=== PATIENT | female | born 1930 | race Caucasian/White ===

== ENCOUNTER 2016-05-29 09:45 | Inpatient (IN) | payer MEDICARE, OTHER ==
[2016-05-29] MEDS ORDERED: NORMAL SALINE 1000 ML 1,000 ML IV ONE ×2 (10:31→12:26)
[2016-05-29] MEDS ORDERED: MORPHINE SULFATE 10 MG/ML INJ IV ONE (10:31)
[2016-05-29] MEDS ORDERED: CEFTAZIDIME INJ 1 GM VIAL IV ONE (10:32)
[2016-05-29 10:57] LABS: VENOUS BLOOD BASE EXCESS 13.8 mmol/L; VENOUS BLOOD HCO3 39.7 mmol/L (20-32); VENOUS BLOOD PCO2 54.9 mmHg (35-63); VENOUS BLOOD PH 7.48 (7.30-7.42)
[2016-05-29 10:59] LABS: ABSOLUTE EOSINOPHILS # (AUTO) 0.1 10^3/uL (0.0-0.6); ABSOLUTE MONOCYTES (AUTO) 1.3 10^3/uL (0.1-1.4); ABSOLUTE NEUT (AUTO) 6.5 10^3/uL (1.7-8.2); BASOPHILS % (AUTO) 0.3 % (0-2); EOSINOPHILS % (AUTO) 0.6 % (0-6); HEMOGLOBIN 13.4 g/dL (12.0-15.5); HGB HCT DIFFERENCE 0.2; LYMPHOCYTES % (AUTO) 19.9 % (13-45); MEAN CORPUSCULAR HEMOGLOBIN 26.9 pg (27.0-33.4); MEAN CORPUSCULAR HGB CONC 33.4 g/dL (32.0-36.0); MEAN CORPUSCULAR VOLUME 81 fl (80-97); MONOCYTES % (AUTO) 12.9 % (3-13); RED BLOOD COUNT 4.97 10^6/uL (3.72-5.28); RED CELL DISTRIBUTION WIDTH 16.3 % (11.5-14.0); SEGMENTED NEUTROPHILS % (AUTO) 66.3 % (42-78); WHITE BLOOD COUNT 9.8 10^3/uL (4.0-10.5)
[2016-05-29 11:04] LABS: PROTHROMBIN TIME 15.1 SEC (11.4-15.4)
[2016-05-29 11:23] LABS: ALANINE AMINOTRANSFERASE 24 U/L (9-52); ALBUMIN 3.5 g/dL (3.5-5.0); ALKALINE PHOSPHATASE 83 U/L (38-126); ANION GAP 13 (5-19); ASPARTATE AMINO TRANSFERASE 32 U/L (14-36); BILIRUBIN,TOTAL 0.5 mg/dL (0.2-1.3); CALCIUM 9.7 mg/dL (8.4-10.2); CARBON DIOXIDE 39 mmol/L (22-30); CHLORIDE 81 mmol/L (98-107); CREATININE RESULT 2.44 mg/dL (0.52-1.25); GLUCOSE 323 mg/dL (75-110); POTASSIUM 4.2 mmol/L (3.6-5.0); SODIUM 133.3 mmol/L (137-145); TOTAL PROTEIN 7.8 g/dL (6.3-8.2)
[2016-05-29 11:32] LABS: BLOOD UREA NITROGEN 144 mg/dL (7-20)
--- NOTE | 2016-05-29 11:34 | ER Document Report ---
ED GI/ - General Chief Complaint: Vaginal Bleeding Stated Complaint: VAGINAL BLEEDING Notes: This is an 86-year-old female who presents from [facility] home. She has history of stroke with hemiplegia, nonverbal, G-tube, DO NOT RESUSCITATE. She was noted to have blood-tinged, foul-smelling urine a few days ago. Urine culture was sent to the hospital and she was started on antibiotics. She was referred here today for gross hematuria. Further history unavailable secondary to patient's nonverbal state. Family at bedside states this is her baseline although she is moaning somewhat more than normal. TRAVEL OUTSIDE OF THE [place] IN LAST 30 DAYS: No - Related Data Allergies/Adverse Reactions: codeine [Codeine] Allergy (Verified 06/16/13 17:00) Home Medications: Current Home Medications Acetaminophen [Children's Acetaminophen] 650 mg GT Q4HP PRN 05/29/16 [History] Aspirin [Aspirin 81 mg Chewable Tablet] 81 mg GT DAILY 05/29/16 [History] Glycopyrrolate [Robinul Forte 1 Mg Tablet] 1 mg SL TID 05/29/16 [History] Insulin Aspart [Novolog Insulin (Aspart) 100 unit/mL] 0 units SQ ASDIR PRN 05/29 [History] Insulin Glargine,Hum.rec.anlog [Lantus Insulin Inj 300 Unit/3 ml Pen] 24 unit SUBCUT DAILY@0000 05/29/16 [History] Insulin Glargine,Hum.rec.anlog [Lantus Solostar] 28 unit SQ DAILY@1200 05/29/16 [History] Ketoconazole [Nizoral A-D] 1 applic TP TUFR@1000 05/29/16 [History] Metoprolol Tartrate 12.5 mg GT Q12 05/29/16 [History] Sodium Chloride [[place] Nasal [place] 44 ml Bottle] 1 spray IH QIDWA 05/29/16 [ History] Past Medical History - General Information source: Relative, Outside Facility Records Cannot obtain history due to: Dementia - Social History Smoking Status: Unknown if Ever Smoked Frequency of alcohol use: None Drug Abuse: None Lives with: Intermediate Family History: Reviewed & Not Pertinent - Past Medical History Cardiac Medical History: Reports: Hx Hypercholesterolemia, Hx Hypertension Pulmonary Medical History: Reports: Hx Bronchitis, Hx Pneumonia Denies: Hx COPD, Hx Tuberculosis Neurological Medical History: Reports: Hx Cerebrovascular Accident - NUMEROUS TIA's. Denies: Hx Seizures Endocrine Medical History: Reports: Hx Diabetes Mellitus Type 2 Musculoskeltal Medical History: Reports Hx Arthritis Psychiatric Medical History: Reports: Hx Dementia Past Surgical History: Reports: Hx Mastectomy - L sided. Denies: Hx Appendectomy, Hx Bowel Surgery, Hx Section, Hx Cholecystectomy, Hx Coronary Artery Bypass Graft, Hx Gastric Bypass Surgery, Hx Herniorrhaphy, Hx Hysterectomy, Hx Pacemaker, Hx Tonsillectomy, Hx Tubal Ligation - Immunizations Hx Diphtheria, Pertussis, Tetanus Vaccination: Yes Hx Pneumococcal Vaccination: 06/16/13 Review of Systems - Review of Systems -: Yes ROS unobtainable due to patient's medical condition Physical Exam - Vital signs Vitals: Pulse Resp BP Pulse Ox 91 34 H 137/60 H 97 05/29/16 10:00 05/29/16 10:00 05/29/16 10:00 05/29/16 10:00 - General In distress: Mild - Patient with eyes closed, mild tachypnea, moaning slightly, appears uncomfortable and in mild distress - HEENT Head: Normocephalic Pupils: PERRL Nasal: Normal Mouth/Lips: Normal Mucous membranes: Dry Neck: Normal - Respiratory Respiratory status: Tachypnea Breath sounds: Normal - Cardiovascular Rhythm: Regular - Abdominal Inspection: Normal Distension: No distension Tenderness: Nontender - Genitourinary External exam: Other - Mckeon has been placed by nursing staff with gross hematuria as well as blood around the vaginal area - Extremities General upper extremity: Normal inspection General lower extremity: Normal inspection - Skin Skin Temperature: Warm Skin Moisture: Dry Skin Color: Normal Course - Re-evaluation Re-evalutation: 05/29/16 14:01 discussed comfort care with family who is considering, will talk with other family members. - Vital Signs Vital signs: Temp Pulse Resp BP Pulse Ox 91 22 H 120/60 99 05/29/16 10:00 05/29/16 19:01 05/29/16 19:01 05/29/16 19:01 - Laboratory Result Diagrams: 05/29/16 10:39 05/29/16 10:39 Laboratory results interpreted by me: 05/29/16 05/29/16 05/29/16 10:39 10:39 10:39 MCH 26.9 L RDW 16.3 H VBG pH 7.48 H VBG HCO3 39.7 H Sodium 133.3 L Chloride 81 L Carbon Dioxide 39 H BUN 144 H Creatinine 2.44 H Est GFR ( Amer) 23 L Est GFR (Non-Af Amer) 19 L Glucose 323 H Creatine Kinase Urine Protein Urine Glucose (UA) Urine Blood Ur Leukocyte Esterase 05/29/16 05/29/16 10:39 11:09 MCH RDW VBG pH VBG HCO3 Sodium Chloride Carbon Dioxide BUN Creatinine Est GFR ( Amer) Est GFR (Non-Af Amer) Glucose Creatine Kinase < 20 L Urine Protein >=500 H Urine Glucose (UA) 50 H Urine Blood SMALL H Ur Leukocyte Esterase LARGE H - Diagnostic Test Radiology reviewed: Image reviewed, Reports reviewed - fecal impaction - EKG Interpretation by Me EKG shows normal: Sinus rhythm - new TWI in I and AVL Discharge - Discharge Clinical Impression: Urinary tract infection due to Proteus, Hemorrhage of urinary bladder wall, Acute kidney injury, Fecal impaction Condition: Fair Disposition: ADMITTED INPATIENT Admitting Provider: Hospitalist critical access hospital Unit Admitted: Medical Floor
[2016-05-29 11:43] LABS: APPEARANCE,URINE TURBID
[2016-05-29 11:44] LABS: PROTEIN,URINE >=500 mg/dL (NEGATIVE); UROBILINOGEN,URINE NEGATIVE mg/dL (<2.0)
[2016-05-29 11:45] LABS: LEUKOCYTE ESTERASE,URINE LARGE (NEGATIVE); NITRITE,URINE NEGATIVE (NEGATIVE); URINE SPECIFIC GRAVITY 1.025
[2016-05-29 11:46] LABS: BILIRUBIN,URINE NEGATIVE (NEGATIVE); GLUCOSE, URINE 50 mg/dL (NEGATIVE); KETONES,URINE NEGATIVE (NEGATIVE)
[2016-05-29 11:47] LABS: BACTERIA,URINE TRACE /HPF; RBC,URINE TOO NUMEROUS TO CNT /HPF; WBC,URINE 30-50 /HPF
--- NOTE | 2016-05-29 13:17 | EKG REPORT ---
SEVERITY:- ABNORMAL ECG - SINUS RHYTHM INFERIOR INFARCT, AGE INDETERMINATE NONSPECIFIC T ABNORMALITIES, ANT-LAT LEADS PROLONGED QT INTERVAL : Confirmed by: Maugi Ayers 29-May-2016 13:16:34
[2016-05-29 13:21] LABS: CREATINE KINASE MB 1.59 ng/mL (<4.55); TROPONIN I 0.052 ng/mL
[2016-05-29] MEDS ORDERED: NA PHOS,M-B/NA PHOS,DI-BA (ADULT) 133 ML ENEMA PR SCH (14:00)
[2016-05-29] MEDS ORDERED: ACETAMINOPHEN 650 MG SUPP.RECT PR PRN (14:48)
[2016-05-29] MEDS ORDERED: ACETAMINOPHEN 325 MG TABLET PEG PRN (14:48)
[2016-05-29] MEDS ORDERED: LEVALBUTEROL HCL NEB 1.25 MG/3 ML AMPUL NEB PRN (14:48)
[2016-05-29] MEDS ORDERED: ONDANSETRON HCL INJ/PF 4 MG/2 ML SDV IV PRN (14:48)
[2016-05-29] MEDS ORDERED: GLUCAGON,HUMAN RECOMB 1 MG INJ IM PRN (14:58)
[2016-05-29] MEDS ORDERED: DEXTROSE 40% GEL 15 GM TUBE PO PRN ×2 (14:58)
[2016-05-29] MEDS ORDERED: DEXTROSE 50%-WATER 25 GM/50 ML DISP.SYRIN IV PRN ×2 (14:58)
[2016-05-29] MEDS ORDERED: INSULIN LISPRO 100 UNIT/ML 3 ML VIAL SUBCUT ONE (17:00)
--- NOTE | 2016-05-29 17:44 | PDOC H&P ---
History of Present Illness Admission Date/PCP: 05/29/16 14:48 JUAN CARLOS ARAUZ History of Present Illness: CATHI JULIO is a 86 year old female diabetes mellitus type II, CVA, advanced dementia, hyperlipidemia, PEG tube dependent who presents to the emergency department from primary residential for "vaginal bleeding". Unable to obtain any review of systems from patient as she has aphasia at baseline secondary to prior stroke. 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, osteoarthritis , breast cancer Cardiac Medical History: Reports: Hyperlipidema, Hypertension Pulmonary Medical History: Reports: Bronchitis, Pneumonia Denies: Chronic Obstructive Pulmonary Disease (COPD), Tuberculosis Neurological Medical History: Denies: Seizures Endocrine Medical History: Reports: Diabetes Mellitus Type 2 Musculoskeltal Medical History: Reports: Arthritis Psychiatric Medical History: Reports: Dementia Past Surgical History Past Surgical History: Reports: Cholecystectomy, Mastectomy - L sided Denies: Appendectomy, Section, Coronary Artery Bypass Graft, Gastric Bypass Surgery, Herniorrhaphy, Hysterectomy, Pacemaker, Tonsillectomy, Tubal Ligation Social History Information Source: POA - Power of Manager Risk Lives with: Senior Living Smoking Status: Former Smoker - Previous social smoker on occasion Frequency of Alcohol Use: None Hx Recreational Drug Use: No Hx Prescription Drug Abuse: No - Advance Directive Resuscitation Status: Do Not Resuscitate Surrogate healthcare decision maker:: Dian James, daughter Family History Family History: Hyperlipidemia, Malignancy Parental Family History Reviewed: Yes Children Family History Reviewed: Yes Sibling(s) Family History Reviewed.: Yes Medication/Allergy Home Medications: Acetaminophen [Children's Acetaminophen] 650 mg GT Q4HP PRN 05/29/16 Aspirin [Aspirin 81 mg Chewable Tablet] 81 mg GT DAILY 05/29/16 Glycopyrrolate [Robinul Forte 1 Mg Tablet] 1 mg SL TID 05/29/16 Insulin Aspart [Novolog Insulin (Aspart) 100 unit/mL] 0 units SQ ASDIR PRN 05/29 Insulin Glargine,Hum.rec.anlog [Lantus Insulin Inj 300 Unit/3 ml Pen] 24 unit SUBCUT DAILY@0000 05/29/16 Insulin Glargine,Hum.rec.anlog [Lantus Solostar] 28 unit SQ DAILY@1200 05/29/16 Ketoconazole [Nizoral A-D] 1 applic TP TUFR@1000 05/29/16 Metoprolol Tartrate 12.5 mg GT Q12 05/29/16 Sodium Chloride [[place] Nasal [place] 44 ml Bottle] 1 spray IH QIDWA 05/29/16 Allergies/Adverse Reactions: codeine [Codeine] Allergy (Verified 06/16/13 17:00) Review of Systems ROS unobtainable: Due to mental status Physical Exam Vital Signs: Temp Pulse Resp BP Pulse Ox 91 22 H 134/57 H 100 05/29/16 10:00 05/29/16 14:01 05/29/16 14:01 05/29/16 14:01 Intake & Output 05/28/16 05/29/16 05/30/16 06:59 06:59 06:59 Weight 69 kg General appearance: PRESENT: mild distress, well-developed, well-nourished Head exam: PRESENT: atraumatic, normocephalic Eye exam: PRESENT: conjunctiva pink, PERRLA. ABSENT: EOMI - Gaze deviated right upper quadrant, scleral icterus Ear exam: PRESENT: normal external ear exam Mouth exam: PRESENT: other - Refuses to open mouth Teeth exam: PRESENT: edentulous Neck exam: ABSENT: carotid bruit, JVD, lymphadenopathy, thyromegaly, tracheal deviation Respiratory exam: PRESENT: clear to auscultation monica, symmetrical - Poor respiratory effort. ABSENT: rales, rhonchi, wheezes Cardiovascular exam: PRESENT: RRR, +S1, +S2, systolic murmur - 2/6 apex. ABSENT : clicks, diastolic murmur, gallop, rubs Pulses: PRESENT: normal dorsalis pedis pul Vascular exam: PRESENT: normal capillary refill GI/Abdominal exam: PRESENT: normal bowel sounds, soft. ABSENT: distended, guarding, mass, organolmegaly, rebound, tenderness Rectal exam: PRESENT: deferred Gentrourinary exam: PRESENT: other - Mckeon catheter with braden blood Extremities exam: PRESENT: full ROM. ABSENT: clubbing, pedal edema Neurological exam: PRESENT: awake, motor sensory deficit - Dysphasia, aphasic - Baseline Psychiatric exam: PRESENT: flat affect, other - Unable to ascertain Skin exam: PRESENT: dry, intact, warm. ABSENT: cyanosis, rash Results Laboratory Results: Due to current error in [employer] interface please see printed chart for all laboratory values. 05/29/16 05/29/16 05/29/16 10:39 10:39 10:39 Sodium 133.3 L Potassium 4.2 Chloride 81 L Carbon Dioxide 39 H Anion Gap 13 BUN 144 H Creatinine 2.44 H Glucose 323 H Lactic Acid 2.1 Calcium 9.7 AST 32 ALT 24 Alkaline Phosphatase 83 Creatine Kinase < 20 L Troponin I 05/29/16 10:39 Sodium Potassium Chloride Carbon Dioxide Anion Gap BUN Creatinine Glucose Lactic Acid Calcium AST ALT Alkaline Phosphatase Creatine Kinase Troponin I 0.052 Impressions: Chest X-Ray 05/29/16 10:32 IMPRESSION: Bandlike scarring or atelectasis in the right lower lobe. Abdomen/Pelvis CT 05/29/16 12:14 IMPRESSION: Hyperdense urine in the bladder with Mckeon catheter draining the bladder. Findings likely represent bladder mucosal hemorrhage. Massive amount of stool in the distal sigmoid and rectum Staghorn calculus in the right kidney Status: Imported from PACS Assessment & Plan - Diagnosis (1) Acute kidney injury Is this a current diagnosis for this admission?: YesPlan: We'll begin patient on normal saline at 200 mL an hour. Secondary to dehydration due to PEG status. Daughter reports to me that mother had a recent increase in her free water per her residential physician. Will also give patient free water flushes at 75 mL/h. (2) Urinary tract infection due to Proteus Is this a current diagnosis for this admission?: YesPlan: Patient has recent urinary culture that is positive for Proteus. This is sensitive to Rocephin. Will begin patient on Rocephin 1 g IV daily. Anticipate that this infection has been going on for quite some time as patient has a staghorn calculus. Calculus is nonobstructing, but fecal impaction is causing hydroureter. Discussed case with radiology and ER physician. (3) Hemorrhage of urinary bladder wall Is this a current diagnosis for this admission?: YesPlan: Will follow H&H. Consult urology if needed. Anticipate this may be secondary to underlying infection. (4) Fecal impaction Is this a current diagnosis for this admission?: YesPlan: Will have manual disimpaction followed by enemas twice a day and lactulose per PEG. Anticipate the patient will have some loose stool prior to full evacuation of colon. Would like to see patient have 5-6 hard/soft bowel movements before discontinuing therapy. Concern for [place] syndrome. 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 Also has PEG secondary to previous CVA (7) Personal history of breast cancer Is this a current diagnosis for this admission?: YesPlan: Left arm restricted - Time Time Spent: 50 to 70 Minutes Medications reviewed and adjusted accordingly: Yes - Inpatient Certification Based on my medical assessment, after consideration of the patient's comorbidities, presenting symptoms, or acuity I expect that the services needed warrant INPATIENT care.: Yes I certify that my determination is in accordance with my understanding of Medicare's requirements for reasonable and necessary INPATIENT services [42 CFR 412.3e].: Yes Medical Necessity: Failure to Improve With Outpatient Therapy, Need For IV Fluids, Need For Continuous Telemetry Monitoring, Need for IV Antibiotics, Risk of Complication if Not Cared For in Hospital Post Hospital Care: D/C [employer] Documentation
[2016-05-29] MEDS: NORMAL SALINE 1000 ML 1,000 ML IV PRN (18:30)
[2016-05-29] MEDS: LACTULOSE SYRUP 20 GM/30 ML UDCUP PEG SCH (18:40)
[2016-05-29] MEDS: MORPHINE SULFATE 10 MG/ML INJ IV PRN (18:50)
[2016-05-29] MEDS: MINERAL OIL ENEMA 133 ML PR SCH (18:55)
[2016-05-29] MEDS: SODIUM CHLORIDE NASAL SPRAY 44 ML NAREB SCH (21:39)
[2016-05-29] MEDS: METOPROLOL TARTRATE 25 MG TABLET GT SCH (23:21)
[2016-05-30] MEDS: SODIUM CHLORIDE NASAL SPRAY 44 ML NAREB SCH ×5 (00:08→22:55)
[2016-05-30] MEDS: INSULIN LISPRO 100 UNIT/ML 3 ML VIAL SUBCUT PRN ×2 (00:09→07:10)
[2016-05-30] MEDS: LACTULOSE SYRUP 20 GM/30 ML UDCUP PEG SCH ×2 (00:10→05:29)
[2016-05-30] MEDS: NORMAL SALINE 1000 ML 1,000 ML IV PRN ×2 (03:42→08:19)
[2016-05-30 04:33] LABS: ABSOLUTE EOSINOPHILS # (AUTO) 0.2 10^3/uL (0.0-0.6); ABSOLUTE LYMPHOCYTES (AUTO) 1.7 10^3/uL (0.5-4.7); ABSOLUTE MONOCYTES (AUTO) 0.9 10^3/uL (0.1-1.4); ABSOLUTE NEUT (AUTO) 6.3 10^3/uL (1.7-8.2); BASOPHILS % (AUTO) 0.2 % (0-2); EOSINOPHILS % (AUTO) 1.8 % (0-6); HEMATOCRIT 25.5 % (36.0-47.0); HGB HCT DIFFERENCE -0.3; LYMPHOCYTES % (AUTO) 18.4 % (13-45); MEAN CORPUSCULAR HGB CONC 33.1 g/dL (32.0-36.0); MEAN CORPUSCULAR VOLUME 82 fl (80-97); MONOCYTES % (AUTO) 10.2 % (3-13); RED BLOOD COUNT 3.13 10^6/uL (3.72-5.28); RED CELL DISTRIBUTION WIDTH 15.9 % (11.5-14.0); SEGMENTED NEUTROPHILS % (AUTO) 69.4 % (42-78); WHITE BLOOD COUNT 9.1 10^3/uL (4.0-10.5)
[2016-05-30 04:35] LABS: CHLORIDE 110 mmol/L (98-107); CREATININE RESULT 1.17 mg/dL (0.52-1.25); GLUCOSE 159 mg/dL (75-110); MAGNESIUM 2.1 mg/dL (1.6-2.3)
[2016-05-30 04:44] LABS: ANION GAP 9 (5-19)
[2016-05-30 04:51] LABS: HEMOGLOBIN 8.4 g/dL (12.0-15.5)
[2016-05-30 04:52] LABS: BLOOD UREA NITROGEN 102 mg/dL (7-20); CARBON DIOXIDE 22 mmol/L (22-30); POTASSIUM 3.1 mmol/L (3.6-5.0)
[2016-05-30 04:53] LABS: CALCIUM 5.7 mg/dL (8.4-10.2)
[2016-05-30] MEDS ORDERED: CALCIUM GLUCONATE 1000 MG/10 ML INJ IV ONE (07:34)
[2016-05-30 07:50] VITALS: BP 132/49
[2016-05-30] MEDS ORDERED: INSULIN GLARGINE,HUM.REC.ANLOG 300 UNIT/3 ML INSULN.PEN SUBCUT SCH ×3 (08:00→22:00)
[2016-05-30] MEDS ORDERED: INSULIN GLARGINE,HUM.REC.ANLOG 1,000 UNIT/10 ML UNIT SUBCUT SCH (08:00)
[2016-05-30] MEDS: POTASSI CL 20 MEQ/50 ML RIDER 20 MEQ/50 ML RTUPB IV SCH ×2 (08:19→10:42)
[2016-05-30] MEDS ORDERED: CEFTRIAXONE 1 GM/D5W RTU 50 ML IV SCH (10:00)
[2016-05-30] MEDS ORDERED: CALCIUM GLUCONATE 2,000 MG in DEXTROSE 5%-WATER 100 ML IV ONE (10:00)
[2016-05-30] MEDS: METOPROLOL TARTRATE 25 MG TABLET GT SCH ×3 (10:50→21:45)
[2016-05-30] MEDS: MINERAL OIL ENEMA 133 ML PR SCH ×3 (11:29→21:45)
[2016-05-30] MEDS: MORPHINE SULFATE 10 MG/ML INJ IV PRN (11:31)
[2016-05-30] MEDS ORDERED: NORMAL SALINE 1000 ML 1,000 ML IV PRN (13:08)
[2016-05-30] MEDS ORDERED: LORAZEPAM INJ 2 MG/1 ML VIAL IV PRN (13:08)
--- NOTE | 2016-05-30 13:11 | Progress Note ---
Provider Note Provider Note: Discussion with patient family re:transfer for urologic evalutation for gross hematuria and decline of hgb over 24hours. Family declines aggressive intervention and evaluation. State that PEG not a part of mother's wishes, but was put in before they knew. Comfort measures to be started. Hospice consulted. Temporizing measures until all family can be present.
[2016-05-30 14:02] LABS: ABSOLUTE EOSINOPHILS # (AUTO) 0.4 10^3/uL (0.0-0.6); ABSOLUTE LYMPHOCYTES (AUTO) 2.3 10^3/uL (0.5-4.7); ABSOLUTE MONOCYTES (AUTO) 1.6 10^3/uL (0.1-1.4); ABSOLUTE NEUT (AUTO) 10.6 10^3/uL (1.7-8.2); BASOPHILS % (AUTO) 0.2 % (0-2); EOSINOPHILS % (AUTO) 2.5 % (0-6); HEMATOCRIT 28.2 % (36.0-47.0); HEMOGLOBIN 9.2 g/dL (12.0-15.5); HGB HCT DIFFERENCE -0.6; LYMPHOCYTES % (AUTO) 15.6 % (13-45); MEAN CORPUSCULAR HEMOGLOBIN 26.7 pg (27.0-33.4); MEAN CORPUSCULAR HGB CONC 32.5 g/dL (32.0-36.0); MEAN CORPUSCULAR VOLUME 82 fl (80-97); MONOCYTES % (AUTO) 10.9 % (3-13); RED BLOOD COUNT 3.44 10^6/uL (3.72-5.28); RED CELL DISTRIBUTION WIDTH 16.1 % (11.5-14.0); SEGMENTED NEUTROPHILS % (AUTO) 70.8 % (42-78)
--- NOTE | 2016-05-30 20:54 | PDOC PROGRESS REPORT ---
Subjective Progress Note for:: 05/30/16 Subjective:: Patient is not tolerating tube feeds. Her free water flushes per nursing. Patient continues to be constipated requiring manual disimpaction. Patient's hemoglobin has dropped to 8 from 13 on admission continues to have copious hematuria. Patient is unable to obtain review of systems secondary to her baseline aphasia due to previous CVA. Physical Exam Vital Signs: Temp Pulse Resp BP Pulse Ox 97.5 F 70 18 132/49 H 99 05/30/16 07:28 05/30/16 19:00 05/30/16 10:27 05/30/16 07:28 05/30/16 07:28 Intake & Output 05/29/16 05/30/16 05/31/16 06:59 06:59 06:59 Intake Total 1750 1000 Output Total 1375 1080 Balance 375 -80 Weight 70.2 kg 70.2 kg Exam: General: Resting, tachypnea when stimulated no acute respiratory distress HEENT: AT/NC, PERRL, gaze palsy, oropharynx is moist, pink, no scleral icterus, no conjunctival injection Neck: Slight JVD, trachea midline Chest: Crackles bilaterally CV: Regular rate and rhythm, normal S1 and S2, 2/6 murmur;no rub or gallop Abdomen: Soft, mildly distended, diminished tinkling bowel sounds; no rebound, rigidity Extremities: No cyanosis, clubbing or edema Neuro: A aphasia, hemiparesis, gaze deviation Results Laboratory Results: 05/30/16 13:34 05/30/16 04:10 05/30/16 05/30/16 05/30/16 04:10 04:10 08:55 WBC 9.1 RBC 3.13 L Hgb 8.4 L D Hct 25.5 L MCV 82 MCH 27.0 MCHC 33.1 RDW 15.9 H Plt Count 157 Seg Neutrophils % 69.4 Lymphocytes % 18.4 Monocytes % 10.2 Eosinophils % 1.8 Basophils % 0.2 Absolute Neutrophils 6.3 Absolute Lymphocytes 1.7 Absolute Monocytes 0.9 Absolute Eosinophils 0.2 Absolute Basophils 0.0 Retic Count (auto) Absolute Retic Sodium 141.0 Potassium 3.1 L D Chloride 110 H Carbon Dioxide 22 D Anion Gap 9 BUN 102 H D Creatinine 1.17 Est GFR ( Amer) 53 L Est GFR (Non-Af Amer) 44 L Glucose 159 H Calcium 5.7 L* Magnesium 2.1 Iron Cancelled TIBC Cancelled % Saturation Cancelled Transferrin Ferritin Cancelled Vitamin B12 Cancelled Folate Cancelled Blood Type Antibody Screen 05/30/16 05/30/16 05/30/16 08:55 08:55 09:48 WBC RBC Hgb Hct MCV MCH MCHC RDW Plt Count Seg Neutrophils % Lymphocytes % Monocytes % Eosinophils % Basophils % Absolute Neutrophils Absolute Lymphocytes Absolute Monocytes Absolute Eosinophils Absolute Basophils Retic Count (auto) 2.71 Absolute Retic 0.119 Sodium Potassium Chloride Carbon Dioxide Anion Gap BUN Creatinine Est GFR ( Amer) Est GFR (Non-Af Amer) Glucose Calcium Magnesium Iron TIBC % Saturation Transferrin Cancelled Ferritin Vitamin B12 Folate Blood Type A POSITIVE Antibody Screen NEGATIVE 05/30/16 13:34 WBC 15.0 H RBC 3.44 L Hgb 9.2 L Hct 28.2 L MCV 82 MCH 26.7 L MCHC 32.5 RDW 16.1 H Plt Count 233 Seg Neutrophils % 70.8 Lymphocytes % 15.6 Monocytes % 10.9 Eosinophils % 2.5 Basophils % 0.2 Absolute Neutrophils 10.6 H Absolute Lymphocytes 2.3 Absolute Monocytes 1.6 H Absolute Eosinophils 0.4 Absolute Basophils 0.0 Retic Count (auto) Absolute Retic Sodium Potassium Chloride Carbon Dioxide Anion Gap BUN Creatinine Est GFR ( Amer) Est GFR (Non-Af Amer) Glucose Calcium Magnesium Iron TIBC % Saturation Transferrin Ferritin Vitamin B12 Folate Blood Type Antibody Screen 05/29/16 05/29/16 05/30/16 15:15 21:40 04:10 Troponin I 0.066 0.056 0.027 Impressions: Chest X-Ray 05/29/16 10:32 IMPRESSION: Bandlike scarring or atelectasis in the right lower lobe. Abdomen/Pelvis CT 05/29/16 12:14 IMPRESSION: Hyperdense urine in the bladder with Mckeon catheter draining the bladder. Findings likely represent bladder mucosal hemorrhage. 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 At this time they have elected for patient to be made comfort measures. We will not irrigate patient were wall is concern for ongoing bleeding that would be worsened by irrigation. Will irrigate as necessary to maintain Mckeon patency by hand. (2) Acute kidney injury Is this a current diagnosis for this admission?: YesPlan: At this time, I have concerns for ongoing aggressive hydration for this patient has a feel that she is likely retaining urine in her bladder causing distention. Patient continues to have clots and copious bleeding from her urogenital tract. At this time, her acute renal failure has improved, but patient remains uremic likely secondary to paternal blood products. (3) Urinary tract infection due to Proteus Is this a current diagnosis for this admission?: Yes (4) Fecal impaction Is this a current diagnosis for this admission?: YesPlan: Continue disimpaction and enemas as these are providing patient with relief. 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 - Time Time Spent with patient: 35 or more minutes Medications reviewed and adjusted accordingly: Yes Anticipated discharge: Hospice Within: when bed available
[2016-05-31] MEDS: MORPHINE SULFATE 10 MG/ML INJ IV PRN ×2 (02:24→17:11)
[2016-05-31] MEDS: SODIUM CHLORIDE NASAL SPRAY 44 ML NAREB SCH ×2 (10:22→14:06)
[2016-05-31] MEDS ORDERED: METOPROLOL TARTRATE 25 MG TABLET GT ONE (10:45)
[2016-05-31] MEDS ORDERED: MINERAL OIL ENEMA 133 ML PR ONE (11:00)
--- NOTE | 2016-05-31 17:08 | PDOC DISCHARGE SUMMARY ---
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) Is this a current diagnosis for this admission?: Yes (7) Personal history of breast cancer Is this a current diagnosis for this admission?: Yes (8) Diabetes mellitus, insulin dependent (IDDM), controlled Is this a current diagnosis for this admission?: Yes (9) Hypocalcemia Is this a current diagnosis for this admission?: Yes (10) Hypokalemia Is this a current diagnosis for this admission?: Yes (11) Acute blood loss anemia Is this a current diagnosis for this admission?: Yes (12) Hydroureter, right Is this a current diagnosis for this admission?: Yes (13) Staghorn calculus Is this a current diagnosis for this admission?: Yes - Additional Information Resuscitation Status: Do Not Resuscitate Home Medications: Acetaminophen [Children's Acetaminophen] 650 mg GT Q4HP PRN 05/29/16 Aspirin [Aspirin 81 mg Chewable Tablet] 81 mg GT DAILY 05/29/16 Glycopyrrolate [Robinul Forte 1 Mg Tablet] 1 mg SL TID 05/29/16 Insulin Aspart [Novolog Insulin (Aspart) 100 unit/mL] 0 units SQ ASDIR PRN 05/29 Insulin Glargine,Hum.rec.anlog [Lantus Insulin Inj 300 Unit/3 ml Pen] 24 unit SUBCUT DAILY@0000 05/29/16 Insulin Glargine,Hum.rec.anlog [Lantus Solostar] 28 unit SQ DAILY@1200 05/29/16 Ketoconazole [Nizoral A-D] 1 applic TP TUFR@1000 05/29/16 Metoprolol Tartrate 12.5 mg GT Q12 05/29/16 Sodium Chloride [[place] Nasal Lane 44 ml Bottle] 1 spray IH QIDWA 05/29/16 History of Present Illness History of Present Illness: CATHI JULIO is a 86 year old female diabetes mellitus type II, CVA, advanced dementia, hyperlipidemia, PEG tube dependent who presents to the emergency department from primary [facility] for "vaginal bleeding". Unable to obtain any review of systems from patient as she has aphasia at baseline secondary to prior stroke. Hospital Course Hospital Course: Patient was sent from the [facility] for her "vaginal bleeding" however was found to have gross hematuria. Patient also had positive urine culture at that time for Proteus mirabilis. Patient appeared started on Rocephin as it was sensitive to this. Patient was found to be in acute renal failure secondary to dehydration and was rehydrated with persistent uremia. Patient also had significant fecal impaction found on CT which was found to be causing right hydroureter. Incidental staghorn calculus was seen but not causing obstruction. Patient after rehydration and initiation of antibiotics had an acute drop in her hemoglobin with persistent gross hematuria. At this time, urology is unavailable and discussion was made with family for consideration of possible transfer for aggressive surgical intervention or for comfort measures at this time. Family elected for comfort measures at this time and requested inpatient hospice for their mother. Patient is to be transferred to inpatient hospice today on comfort measures. She is DNR/DNI. Physical Exam Vital Signs: Temp Pulse Resp BP Pulse Ox 97.5 F 86 22 H 132/49 H 99 05/30/16 07:28 05/31/16 10:31 05/31/16 10:31 05/30/16 07:28 05/30/16 07:28 Intake & Output 05/30/16 05/31/16 06/01/16 06:59 06:59 06:59 Intake Total 1750 1425 Output Total 1375 1880 Balance 375 -455 Weight 70.2 kg 70.2 kg Exam: General: Acutely ill-appearing, grimacing, tachypnea when stimulated no acute respiratory distress HEENT: AT/NC, PERRL, oropharynx is dry, pale, no scleral icterus, no conjunctival injection Neck: Slight JVD, trachea midline Chest: Crackles bilaterally CV: Regular rate and rhythm, normal S1 and S2, 2/6 murmur;no rub or gallop Abdomen: Soft, mildly distended, diminished tinkling bowel sounds; no rebound, rigidity Extremities: No cyanosis, clubbing or edema Neuro: aphasia, hemiparesis Results Laboratory Results: 05/30/16 13:34 05/30/16 04:10 05/29/16 05/29/16 05/30/16 15:15 21:40 04:10 Troponin I 0.066 0.056 0.027 Impressions: Chest X-Ray 05/29/16 10:32 IMPRESSION: Bandlike scarring or atelectasis in the right lower lobe. Abdomen/Pelvis CT 05/29/16 12:14 IMPRESSION: Hyperdense urine in the bladder with Mckeon catheter draining the bladder. Findings likely represent bladder mucosal hemorrhage. Massive amount of stool in the distal sigmoid and rectum Staghorn calculus in the right kidney Qualifiers PATEINT BEING DISCHARGED WITH ANY OF THE FOLLOWING DIAGNOSIS?: No Plan Time Spent: Greater than 30 Minutes
== END 2016-05-31 17:41 | disposition hospice, inpatient (51) | DRG 699 ==
LOC: ER 09:45 → UNDOADMIN 14:17 → EH 14:17 → 3W 20:50
PROVIDERS: ADMIT Family Medicine; ATTEND Family Medicine
DX: N32.89 Other specified disorders of bladder (principal); N17.9 Acute kidney failure, unspecified; N39.0 Urinary tract infection, site not specified; R47.01 Aphasia; I69.959 Hemiplegia and hemiparesis following unspecified cerebrovascular disease affecting unspecified side; N13.4 Hydroureter; R31.0 Gross hematuria; Z51.5 Encounter for palliative care; Z66 Do not resuscitate; E78.00 Pure hypercholesterolemia, unspecified; I10 Essential (primary) hypertension; E11.9 Type 2 diabetes mellitus without complications; B96.4 Proteus (mirabilis) (morganii) as the cause of diseases classified elsewhere; E86.0 Dehydration; R47.02 Dysphasia; E83.51 Hypocalcemia; E87.6 Hypokalemia; F03.90 Unspecified dementia, unspecified severity, without behavioral disturbance, psychotic disturbance, mood disturbance, and anxiety; N20.0 Calculus of kidney; K56.41 Fecal impaction; Z93.1 Gastrostomy status; Z79.82 Long term (current) use of aspirin; Z79.4 Long term (current) use of insulin; Z85.3 Personal history of malignant neoplasm of breast
CPT/HCPCS: 36415; 71010; 74176; 80048; 80053; 81001; 82550; 82553; 82803; 82962; 83605; 83735; 84443; 84484; 85025; 85045; 85610; 86850; 86900; 86901; 87040; 87086; 87088; 87186; 93005; 93010; J0610; J0696; J0713; J1815; J2270; J3480; J3490; J7030